=== PATIENT | male | born 1945 | race Caucasian/White ===

== ENCOUNTER 2016-07-27 08:38 | Inpatient (IN) | payer OTHER, MEDICARE ==
[~2016-07-27] VITALS: Ht 167.6 cm; Wt 99.1 kg
[~2016-07-27 08:38] MED LIST: ALLO300T2 PO; ASPI-973 PO; ATOR80TA PO; METO-272 PO; OXYC1TAB24 PO; PANT40TA2 PO; POLY17PO6 PO; TAMS0.4C98 PO
[2016-07-27 08:43] VITALS: BP 198/104; PULSE 72; RESP 12; O2SAT 94
--- NOTE | 2016-07-27 08:52 | ED.REPORT ---
HPI-Abd Pain M 40 and Over Date of Service July 27, 2016 ED Provider: Twila Jose MD The patient is a 71 year old male with history of kidney stones, recent abdominal hernia repair in late May, hypertension, hyperlipidemia, and coronary artery disease, who presents to the emergency department complaining of mid abdominal pain that began suddenly last night around midnight. Then at 0300 he started vomiting. He has also experienced nausea and abdominal distention. He is now not passing gas. He denies fever, chills, diarrhea, bloody emesis, dysuria or hematuria. Nursing Notes Stated Complaint: EXTREME STOMACH PAIN AND NAUSEA Chief Complaint: Male Abdominal Pain Nursing Notes Reviewed: Yes Allergies: Coded Allergies: clindamycin (Verified Allergy, Severe, Rash, 06/15/15) Scheduled Allopurinol (Allopurinol) 300 Mg Tablet 300 MG PO DAILY Aspirin (Aspirin) 325 Mg Tablet 325 MG PO DAILY Atorvastatin (Lipitor) 80 Mg Tablet 80 MG PO DAILY Enalapril Maleate (Enalapril Maleate) 10 Mg Tablet 10 MG PO DAILY Metoprolol Succinate ER (Metoprolol Succinate ER) 50 Mg Tab.er.24h 50 MG PO DAILY Multivitamin (Multivitamins) 1 Each Capsule 1 EACH PO DAILY [place]-3 Fatty Acids (Fish Oil) 300 Mg Capsule 2,400 MG PO DAILY Pantoprazole DR (Protonix) 40 Mg Tablet 40 MG PO BID General Time Seen by MD: 08:48 Chief Complaint Abdominal pain Hx Obtained From: Patient, Spouse Arrived By: Walk-in Sudden in Onset?: Yes Onset Occurred: 9 - 12 hours ago Symptom Duration: Since onset Progression since Onset: Constant Location: : Diffuse Quality: Painful Severity: Current: Moderate Severity: Maximum: Severe Recent Healthcare: No recent doctor visit, No recent hospitalization Similar Sx Previous: No Past Medical History Past Medical History Notes: Records from recent stay for incisional hernia repair were reviewed. Past Medical History Hernia Gout Kidney stones Reports: Coronary artery disease, Hyperlipidemia, Hypertension Past Surgical History Reports: CABG Family History Noncontributory Smoking History Former Smoker Social History Alcohol Use: "Social" Drug Use: Denies drug use Other Social History: Local resident Ambulatory Status Independent Review of Systems Review of Systems Note: +abdominal distention, not passing gas. Constitutional: Denies: Chills, Fever GI: Reports: Abdominal pain, Nausea, Vomiting, Denies: Bloody/tarry stool, Diarrhea, Hematemesis, Hematochezia, Melena Male: Denies Dysuria, Denies Hematuria Complete sys rev & neg: except as marked. Physical Exam Initial Vital Signs Vital Signs (First) Date Time Temp Pulse Resp B/P Pulse Ox O2 Delivery O2 Flow Rate FiO2 07/27/16 08:43 36.3 72 12 198/104 94 Initial VS: Reviewed Head / Eyes: Atraumatic, Normocephalic, PERRL ENT: Mucous membranes moist, Conjunctiva normal, No scleral icterus Neck: Supple, Non-tender, Full range of motion Extremities: Vascular intact, Neuro intact, No swelling, No tenderness Neurologic: Alert, Oriented, Nonfocal Psychiatric: Mood/affect normal, Behavior normal, Normal thought content General/Constitutional: Awake, Alert Distress / Hydration: Positive: Distress moderate Appearance / Presentation: Positive: Pale, Uncomfortable Respiratory / Chest: Atraumatic, Breath sounds NL, Breath sounds = bilat, No respiratory distress, No rales, No rhonchi, No wheezing Cardiovascular: Heart rate NL, Regular rhythm, Heart sounds NL, No gallop, No murmurs, No rubs, Peripheral circulation NL Abdomen: Soft, No rebound There is a 5 cm scar just superior to the umbilicus from a recent umbilical surgery. The scar is well healed. There is no obvious hernia. No masses below the incision. He is tender throughout his abdomen and has guarding across his upper abdomen. No bowel sounds. No rebound. No peritoneal signs. Back: No midline vertebral tend Skin: No rash Color / Condition: Positive: Diaphoresis present Interpretation & Diagnostics Interpretation & Diagnostics: Creatinine is chronically elevated and stable today. Lab Results Interpretation Result Diagram: 07/27/16 0857 07/27/16 0857 Test 07/27/16 08:57 White Blood Count 9.3th/mm3 (3.8-10.1) Red Blood Count 5.20mil/mm3 (4.40-5.80) Hemoglobin 15.5g/dL (13.8-17.2) Hematocrit 44.2% (41.0-50.0) Mean Corpuscular Volume 85.0fL (81-100) Mean Corpuscular Hemoglobin 29.8pg (27.0-35.0) Mean Corpuscular Hemoglobin Concent 35.1% (32.0-37.0) Red Cell Distribution Width 13.6% (12.3-15.4) Platelet Count 169bil/L (150-400) Neutrophils (%) (Auto) 87.9% (40-74) Lymphocytes (%) (Auto) 5.6% (14-46) Monocytes (%) (Auto) 4.1% (4-12) Eosinophils (%) (Auto) 1.8% (0-5) Basophils (%) (Auto) 0.3% (0-3) Sodium Level 141mEq/L (134-144) Potassium Level 5.1mEq/L (3.5-5.2) Chloride Level 102mEq/L (97-108) Carbon Dioxide Level 22mmol/L (18-29) Blood Urea Nitrogen 28mg/dL (8-27) Creatinine 1.44mg/dL (0.76-1.27) Estimat Glomerular Filtration Rate 52mL/min (>59) Glucose Level 209mg/dL (60-99) Calcium Level 9.9mg/dL (8.5-10.1) Magnesium Level 1.6mg/dL (1.6-2.6) Total Bilirubin 1.1mg/dL (0.0-1.2) Aspartate Amino Transf (AST/SGOT) 36U/L (0-50) Alanine Aminotransferase (ALT/SGPT) 32U/L (0-44) Alkaline Phosphatase 107U/L (25-160) Total Protein 7.0g/dL (6.4-8.4) Albumin 4.2g/dL (3.4-5.0) Lipase 25U/L (13-60) ECG Interpretation ECG Interpretation: Sinus rhythm with a rate of 66 LVH Unchanged from prior EKG taken on 06/15/2015 Time: 09:20 Interpreted by: ED physician X-Ray Abdominal Interpretation IMPRESSION: 1. Multiple small bowel air-fluid levels without abnormal gaseous dilatation are nonspecific but may reflect an early or incomplete obstruction. The differential also includes an ileus or gastroenteritis. Dictated by: Kike Corral M.D. on 07/27/2016 at 9:49 Interpretation / Wet Read by: Interpret - Radiologist Re-Eval/Medical Decision Med Decision/Clinical Course 71-year-old man with acute onset of abdominal pain consistent with small bowel obstruction. Brief discussion with his surgeon as he did have an abdominal wall hernia repair about 6 weeks ago. The surgeon recommended conservative management admitted to our hospital and will reevaluate further if conservative management is not helpful Will treat conservatively and will escalate should symptoms dictate. Source of Hx: Old records Time of Eval: 10:24 Re-Evaluation/Progress Note: Rechecked the patient. Discussed results, diagnosis, and plan for admission. Time of Eval: 11:23 Re-Evaluation/Progress Note: Discussed plan for admission here. Consultation #1: Call Returned at: 10:22 Note: Spoke with the medical device assembler of Dr. Barrera. Explained the issue and will wait for him to call back. He is currently scrubbed in the OR. Consultation #2: Call Returned at: 11:12 Note: Dr. Barrera would like the patient to be treated here as necessary. Consultation #3: Referral / Consult Name: Nic Randle MD Consulted With: Hospitalist Requested Call at: 11:24 Call Returned at: 12:10 Railroader: Will see patient, Agrees with eval, Agrees with plan, Accepts admit Counseled Regarding: Diagnosis, Lab results, Need for admission Discharge & Departure Primary Impression: Bowel obstruction Intestinal obstruction type: unspecified Qualified Code: K56.60 - Unspecified intestinal obstruction Additional Impression: Chronic renal insufficiency Chronic kidney disease stage: unspecified stage Qualified Code: N18.9 - Chronic kidney disease, unspecified Disposition: ADMITTED TO HOSPITAL Vital Signs - All Vital Signs Date Time Temp Pulse Resp B/P Pulse Ox O2 Delivery O2 Flow Rate FiO2 07/27/16 08:43 36.3 72 12 198/104 94 )( All Prior VS Reviewed: Yes Condition: Stable Referrals: Erasmo Zuniga MD (PCP) Hyacinth Attestation Portions of this note were transcribed by Jasmine Barksdale. I, Dr. Jose personally performed the history, physical exam and medical decision-making; I reviewed and confirmed the accuracy of the information in the transcribed note. Signed by: Hyacinth Pritchard, 07/27/2016 at 1230. copies to: Erasmo Zuniga MD, Shawna L MD July 27, 2016 08:51 Jasmine Barksdale July 27, 2016 08:53
[2016-07-27] MEDS ORDERED: 0.9% Sodium Chloride 1,000 ML IV ONE (09:01)
[2016-07-27] MEDS ORDERED: HYDROmorphone 1 mg/mL Inj IVPUSH PRN (09:05)
[2016-07-27] MEDS ORDERED: Ondansetron 2 mg/mL 2 mL Inj IVPUSH ONE ×2 (09:05)
[2016-07-27 09:12] LABS: BASOPHILS % (AUTO) 0.3 % (0-3); EOSINOPHILS % (AUTO) 1.8 % (0-5); MONOCYTES % (AUTO) 4.1 % (4-12); Mean Corpuscular Hemoglobin 29.8 pg (27.0-35.0); NEUTROPHILS % (AUTO) 87.9 % (40-74); Platelet Count 169 bil/L (150-400)
[2016-07-27] MEDS ORDERED: ASPI325T32 PO (09:28)
[2016-07-27 09:32] LABS: Magnesium 1.6 mg/dL (1.6-2.6)
--- NOTE | 2016-07-27 09:55 | DRSVH ---
PROCEDURE: X-RAY ACUTE ABDOMINAL SERIES ([id number]) INDICATIONS: acute belly pain TECHNIQUE: One view chest and two views of the abdomen were acquired. COMPARISON: None. FINDINGS: Surgical changes and devices: Multiple surgical clips and median sternotomy wires are demonstrated in the mediastinum. Chest: Lungs are clear. Heart size is normal. No pleural effusions. No pneumoperitoneum. Abdomen: Bowel gas pattern demonstrates multiple small scattered small bowel air-fluid levels in the left abdomen without abnormal gaseous small bowel dilatation. There is a paucity of gas in the colo n. No suspicious calcifications. Bones: No suspicious bony lesions. IMPRESSION: 1. Multiple small bowel air-fluid levels without abnormal gaseous dilatation are nonspecific but may reflect an early or incomplete obstruction. The differential also includes an ileus or gastroenteri tis. Dictated by: Kike Corral M.D. on 07/27/2016 at 9:49 Approved by: Kike Corral M.D. on 07/27/2016 at 9:53
[2016-07-27] MEDS: HYDROmorphone 0.5 mg/0.5 mL iSecure Syringe IVPUSH PRN ×3 (09:56→16:07)
[2016-07-27] MEDS ORDERED: ENAL10TA PO (12:21)
[2016-07-27] MEDS ORDERED: OMEG300C3 PO (12:22)
[2016-07-27] MEDS ORDERED: MULT1CAP33 PO (12:24)
[2016-07-27] MEDS ORDERED: Alum-Mag Hydrox-Simeth 30 mL Suspension PO PRN (12:55)
[2016-07-27] MEDS ORDERED: Polyethylene Glycol (PEG) 17 Gm Powder PO PRN (12:55)
[2016-07-27 14:06] VITALS: BP 164/75
[2016-07-27 14:35] VITALS: BP 164/99; PULSE 79; RESP 22; O2SAT 94
[2016-07-27 15:25] VITALS: PULSE 72
[2016-07-27 17:12] LABS: COLOR,URINE DARK YELLOW (YELLOW)
[2016-07-27 17:13] LABS: APPEARANCE,URINE CLEAR (CLEAR,HAZY); OCCULT BLOOD,URINE SMALL (NEGATIVE); PH,URINE 5.5 (5.0-8.0); UROBILINOGEN,URINE NORMAL (NORMAL)
[2016-07-27] MEDS: 0.9% Sodium Chloride 1,000 ML IV SCH ×2 (18:07→22:51)
--- NOTE | 2016-07-27 18:37 | PCM.HPMED ---
Subjective Date of Service July 27, 2016 Primary Provider: Admitting Physician: Nic Randle MD Primary Care Physician: Erasmo Zuniga MD Attending Physician: Nic Randle MD Admit Status: From the Emergency Department, Admit to Red Team Chief Complaint: Abdominal pain/12 hr Vomiting/12 HR History of Present Illness: 71-year-old gentleman with past medical history of CAD status post CABG, history of kidney stones, hypertension, hyperlipidemia, recent periumbilical incisional hernia repair came to the emergency room due to sudden onset abdominal pain of 12 hours. Patient states he developed sudden onset generalized abdominal pain. Pain is colicky, intermittent, 8/10. He also developed multiple episodes of vomiting overnight. Last bowel movement yesterday afternoon. He also complains of some abdominal distention. Denies fever. He had elective periumbilical incisional hernia repair with a mesh in May. He also has history of gastric surgery many years ago. ED course: Initial vital signs unremarkable Except high blood pressure. Distended mildly tender abdomen. Initial labs unremarkable. X-ray. Multiple air-fluid levels consistent with small bowel obstruction. surgeon at [facility] who did hernia repair was contacted by ED, recommended admission here and management of SBO Review of Systems: Comprehensive review of systems performed, pertinent positives and negatives included in history of present illness Allergies Coded Allergies: clindamycin (Verified Allergy, Severe, Rash, 06/15/15) Home Medications Allopurinol (Allopurinol) 300 Mg Tablet 300 MG PO DAILY Aspirin (Aspirin) 325 Mg Tablet 325 MG PO DAILY Atorvastatin (Lipitor) 80 Mg Tablet 80 MG PO DAILY Enalapril Maleate (Enalapril Maleate) 10 Mg Tablet 10 MG PO DAILY Metoprolol Succinate ER (Metoprolol Succinate ER) 50 Mg Tab.er.24h 50 MG PO DAILY Multivitamin (Multivitamins) 1 Each Capsule 1 EACH PO DAILY [place]-3 Fatty Acids (Fish Oil) 300 Mg Capsule 2,400 MG PO DAILY Pantoprazole DR (Protonix) 40 Mg Tablet 40 MG PO BID PMH CAD at age 50s, status post CABG Hernia Gout Kidney stones Hyperlipidemia, Hypertension Surgical History Recent hernia repair in May 2016 Gastric surgery, he describes as repositioning of abnormally positioned stomach CABG at age 51 Family History Mother had heart attack in her 50s Social History Hx Alcohol Use: Yes (3-4 x wk) Alcoholic Drinks Per Day: 2 drinks per day Hx Substance Use: No Smoking Status: Former Smoker Exam Vital Signs Vital Sign - Last Date Time Temp Pulse Resp B/P Pulse Ox O2 Delivery O2 Flow Rate FiO2 07/27/16 15:25 72 07/27/16 14:35 36.2 22 164/99 94 Room Air Exam Gen. patient is lying comfortably in hospital bed HEENT: Head is normocephalic atraumatic, Pupils equal and reactive, extraocular movements intact, Lungs clear to auscultation bilaterally Heart regular rate and rhythm without murmurs gallops or rubs Abdomen distended, slightly tender on lower abdomen. Hypoactive bowel sounds. Extremities pulses are present dorsalis pedis posterior tibialis and radial. tSkin is warm and dry there are no rashes, Psych alert and oriented to person place and time Neuro cranial nerves II through XII are grossly intact Lymph: There is no lymphadenopathy appreciated in the cervical supra infraclavicular regions : no roberts Lab and Diagnostics Result Diagram: 07/27/16 0857 07/27/16 0857 X-Rays, CTs and MRIs PROCEDURE: X-RAY ACUTE ABDOMINAL SERIES ([id number]) INDICATIONS: acute belly pain TECHNIQUE: One view chest and two views of the abdomen were acquired. COMPARISON: None. FINDINGS: Surgical changes and devices: Multiple surgical clips and median sternotomy wires are demonstrated in the mediastinum. Chest: Lungs are clear. Heart size is normal. No pleural effusions. No pneumoperitoneum. Abdomen: Bowel gas pattern demonstrates multiple small scattered small bowel air-fluid levels in the left abdomen without abnormal gaseous small bowel dilatation. There is a paucity of gas in the colon. No suspicious calcifications. Bones: No suspicious bony lesions. IMPRESSION: 1. Multiple small bowel air-fluid levels without abnormal gaseous dilatation are nonspecific but may reflect an early or incomplete obstruction. The differential also includes an ileus or gastroenteritis. Dictated by: Kike Corral M.D. on 07/27/2016 at 9:49 Assessment & Plan 71-year-old gentleman with past medical history of CAD status post CABG, history of kidney stones, hypertension, hyperlipidemia, recent periumbilical incisional hernia repair came to the emergency room due to sudden onset abdominal pain of 12 hours. #Small bowel obstruction due to adhesion,poa,acute -Nothing by mouth -Patient not having much distention. Vomiting improving. Hold off NG tube -Serial abdominal exam -will consider CT if no improvement in the next 12 hours -X-ray consistent with small bowel obstruction. -NS at 100ml/h -pain meds morphine -ppi # CAD status post CABG -Telemetry - Home meds remain on hold due to npo #Hypertension -Hydralazine IV when necessary # Recent hernia repair Patient admitted under inpatient status with expected length of stay > 2 midnights for severity of present symptoms, complexities of treatment plan and risk for adverse events full code, verified with patient and copies to: Erasmo Zuniga MD, Melaku MD July 27, 2016 18:37
[2016-07-27] MEDS: Ondansetron 2 mg/mL 2 mL Inj IVPUSH PRN (19:25)
[2016-07-27 20:15] VITALS: BP 168/93; PULSE 73; RESP 17; O2SAT 94
[2016-07-27] MEDS: Pantoprazole 4 mg/mL 10 mL Inj IVPUSH SCH (21:02)
[2016-07-27 23:30] VITALS: PULSE 68
[2016-07-28] VITALS (10 sets, daily range): BP systolic 131–202; BP diastolic 77–96; PULSE 66–83; RESP 13–20; O2SAT 93–97
[2016-07-28] MEDS: 0.9% Sodium Chloride 1,000 ML IV SCH ×3 (04:12→23:58)
[2016-07-28 05:46] LABS: BASOPHILS % (AUTO) 0.5 % (0-3); EOSINOPHILS % (AUTO) 6.1 % (0-5); MONOCYTES % (AUTO) 9.4 % (4-12); Mean Corpuscular Hemoglobin 29.7 pg (27.0-35.0); NEUTROPHILS % (AUTO) 73.4 % (40-74); Platelet Count 180 bil/L (150-400)
[2016-07-28 06:16] LABS: Magnesium 1.7 mg/dL (1.6-2.6)
[2016-07-28] MEDS: Pantoprazole 4 mg/mL 10 mL Inj IVPUSH SCH ×2 (08:19→16:45)
[2016-07-28] MEDS: MeTOProlol XL 50 mg ER24 Tablet PO SCH (10:06)
[2016-07-28] MEDS: Ondansetron 2 mg/mL 2 mL Inj IVPUSH PRN (11:44)
[2016-07-28] MEDS ORDERED: Labetalol 5 mg/mL 4 mL Inj IVPUSH ONE (13:50)
--- NOTE | 2016-07-28 15:11 | PCM.PNMED ---
Subjective Date of Service July 28, 2016 Subjective Passing gas. No bowel movement. Abdominal distention improved. No vomiting. Blood pressures elevated. Home antihypertensives resumed except KINZA inhibitor. Started on clear liquid diets. Tolerating so far Exam Vital Signs Vital Sign - Last Date Time Temp Pulse Resp B/P Pulse Ox O2 Delivery O2 Flow Rate FiO2 07/28/16 13:44 36.8 66 16 180/90 95 Room Air Intake and Output 07/27/16 07/27/16 07/28/16 Cumulative From/Thru 15:00 23:00 07:00 07/27/16 08:43 - 07/28/16 06:15 Intake Total 1000 ml 0 ml 1178 ml 2178 ml Output Total 300 ml 1050 ml 1350 ml Balance 1000 ml -300 ml 128 ml 828 ml Intake Oral 0 ml 0 ml 0 ml IV Total 1000 ml 1178 ml 2178 ml Output Urine Total 200 ml 1050 ml 1250 ml Emesis 100 ml 100 ml Exam Gen. patient is lying comfortably in hospital bed HEENT: Head is normocephalic atraumatic, Pupils equal and reactive, extraocular movements intact, Lungs clear to auscultation bilaterally Heart regular rate and rhythm without murmurs gallops or rubs Abdomen distended, slightly tender on lower abdomen. Hypoactive bowel sounds. Extremities pulses are present dorsalis pedis posterior tibialis and radial. tSkin is warm and dry there are no rashes, Psych alert and oriented to person place and time Neuro cranial nerves II through XII are grossly intact Lymph: There is no lymphadenopathy appreciated in the cervical supra infraclavicular regions : no roberts IVs and Medications Medications Reviewed: Medications were reviewed in detail Lab and Diagnostics Result Diagram: 07/28/1650907/28/16 0510 X-Rays, CTs and MRIs PROCEDURE: X-RAY ACUTE ABDOMINAL SERIES ([id number]) INDICATIONS: acute belly pain TECHNIQUE: One view chest and two views of the abdomen were acquired. COMPARISON: None. FINDINGS: Surgical changes and devices: Multiple surgical clips and median sternotomy wires are demonstrated in the mediastinum. Chest: Lungs are clear. Heart size is normal. No pleural effusions. No pneumoperitoneum. Abdomen: Bowel gas pattern demonstrates multiple small scattered small bowel air-fluid levels in the left abdomen without abnormal gaseous small bowel dilatation. There is a paucity of gas in the colon. No suspicious calcifications. Bones: No suspicious bony lesions. IMPRESSION: 1. Multiple small bowel air-fluid levels without abnormal gaseous dilatation are nonspecific but may reflect an early or incomplete obstruction. The differential also includes an ileus or gastroenteritis. Dictated by: Kike Corral M.D. on 07/27/2016 at 9:49 Assessment & Plan 71-year-old gentleman with past medical history of CAD status post CABG, history of kidney stones, hypertension, hyperlipidemia, recent periumbilical incisional hernia repair came to the emergency room due to sudden onset abdominal pain of 12 hours. #Small bowel obstruction due to adhesion,poa,acute -Start clear liquid diet and advance as tolerated gradually -Patient not having much distention. Vomiting improving. Hold off NG tube -Serial abdominal exam -will consider CT if no improvement in the next 12 hours -X-ray consistent with small bowel obstruction. -NS at 100ml/h -pain meds morphine -ppi # MAGGIE -Due to poor oral intake and vomiting -hold enalapril -Continue fluids # CAD status post CABG -Telemetry - Continue Home meds #Hypertension -Hydralazine IV when necessary -resume home meds except KINZA inhibitor. Gave a dose of amlodipine and labetalol for uncontrolled hypertension # Recent hernia repair Patient admitted under inpatient status with expected length of stay > 2 midnights for severity of present symptoms, complexities of treatment plan and risk for adverse events full code, verified with patient and Disposition: Possible discharge tomorrow if continues to improve and diet advanced VTE Mechanical Devices: Intermittant Pneumatic CD Nic Randle MD July 28, 2016 15:11
[2016-07-29 05:00] VITALS: BP 148/82; PULSE 79; RESP 17; O2SAT 96
[2016-07-29 07:25] LABS: BASOPHILS % (AUTO) 0.5 % (0-3); EOSINOPHILS % (AUTO) 9.7 % (0-5); MONOCYTES % (AUTO) 15.2 % (4-12); Mean Corpuscular Hemoglobin 29.9 pg (27.0-35.0); Mean Corpuscular Volume 90.1 fL (81-100); NEUTROPHILS % (AUTO) 52.6 % (40-74); Platelet Count 142 bil/L (150-400)
[2016-07-29 08:01] LABS: Magnesium 1.7 mg/dL (1.6-2.6)
[2016-07-29] MEDS: Pantoprazole 4 mg/mL 10 mL Inj IVPUSH SCH (08:13)
[2016-07-29] MEDS: MeTOProlol XL 50 mg ER24 Tablet PO SCH (08:14)
[2016-07-29 08:18] VITALS: BP 161/85; PULSE 71; O2SAT 96
[2016-07-29] MEDS ORDERED: Omega-3-Acid Ethyl Esters 1 Gm Capsule PO SCH (08:30)
--- NOTE | 2016-07-29 10:20 | PCM.DIMED ---
Discharge Instructions Date of Service July 29, 2016 Dates of Hospitalization July 27, 2016 at 13:42 Discharge Diagnosis Discharge Diagnosis #Small bowel obstruction due to adhesion,poa,acute,resolved # MAGGIE on CKD # CAD status post CABG #Hypertension # Recent hernia repair Test Results X-ray consistent with small bowel obstruction. Diet Low fat, Low Sodium, Heart Healthy Activity Limited until seen by PCP Call your provider Fever or Chills, Shortness of breath, Bleeding, Chest pain, Vomitting, Excessive diarrhea, Weakness (unilateral) Patient Instructions you were hospitalized to due to small bowel obstruction secondary to adhesions.you had bowel movement and distention improved. Started on diet and tolerated. Please follow-up with PCP in 1 week and discuss hospitalization. Follow-up plan Please follow up with PCP in 1 week. Follow-up Provider: Erasmo Zuniga MD Follow-up with PCP in: 1 week Nic Randle MD July 29, 2016 10:20
--- NOTE | 2016-07-29 11:18 | DRSVH ---
PROCEDURE: X-RAY ABDOMEN, ONE VIEW ([id number]) INDICATIONS: SMALL BOWEL OBSTRUCTION TECHNIQUE: One view of the abdomen acquired. COMPARISON: [facility], CR, XR ABD ACUTE SERIES 3VW, 07/27/2016, 9:35. FINDINGS: Surgical changes and devices: None. Bowel: Abnormal bowel gas pattern redemonstrated. Asymmetric dilatation of small bowel within the m id abdomen and left upper quadrant with paucity of gas within the colon. No pneumatosis or bowel wal l thickening. Soft tissues: No suspicious abdominal calcifications. Visualized solid organ contours appear normal in size. Bones: No suspicious bony lesions. IMPRESSION: Persistent partial small bowel obstructive pattern. Dictated by: William CARBAJAL Interpreted: Rickie Grullon MD on 07/29/2016 at 11:16 Transcribed by: ELIAS on 07/29/2016 at 11:17 Approved by: Rickie Grullon M.D. on 07/29/2016 at 13:39
--- NOTE | 2016-07-29 11:55 | PCM.DC.MED ---
Discharge Summary Date of Service July 29, 2016 Dates of Hospitalization Date of Hospital Admission July 27, 2016 at 13:42 Date of Discharge: July 29, 2016 Providers: Admitting Physician: Nic Randle MD Primary Care Physician: Erasmo Zuniga MD Attending Physician: Nic Randle MD Diagnosis at Time of Discharge Diagnosis at Time of Discharge #Small bowel obstruction due to adhesion,poa,acute,resolved # MAGGIE on CKD # CAD status post CABG #Hypertension # Recent hernia repair Consultations none Procedures XRay, CTs & MRIs PROCEDURE: X-RAY ACUTE ABDOMINAL SERIES ([id number]) INDICATIONS: acute belly pain TECHNIQUE: One view chest and two views of the abdomen were acquired. COMPARISON: None. FINDINGS: Surgical changes and devices: Multiple surgical clips and median sternotomy wires are demonstrated in the mediastinum. Chest: Lungs are clear. Heart size is normal. No pleural effusions. No pneumoperitoneum. Abdomen: Bowel gas pattern demonstrates multiple small scattered small bowel air-fluid levels in the left abdomen without abnormal gaseous small bowel dilatation. There is a paucity of gas in the colon. No suspicious calcifications. Bones: No suspicious bony lesions. IMPRESSION: 1. Multiple small bowel air-fluid levels without abnormal gaseous dilatation are nonspecific but may reflect an early or incomplete obstruction. The differential also includes an ileus or gastroenteritis. Dictated by: Kike Corral M.D. on 07/27/2016 at 9:49 Brief History 71-year-old gentleman with past medical history of CAD status post CABG, history of kidney stones, hypertension, hyperlipidemia, recent periumbilical incisional hernia repair came to the emergency room due to sudden onset abdominal pain of 12 hours. Patient states he developed sudden onset generalized abdominal pain. Pain is colicky, intermittent, 8/10. He also developed multiple episodes of vomiting overnight. Last bowel movement yesterday afternoon. He also complains of some abdominal distention. Denies fever. He had elective periumbilical incisional hernia repair with a mesh in May. He also has history of gastric surgery many years ago. ED course: Initial vital signs unremarkable Except high blood pressure. Distended mildly tender abdomen. Initial labs unremarkable. X-ray. Multiple air-fluid levels consistent with small bowel obstruction. surgeon at [facility] who did hernia repair was contacted by ED, recommended admission here and management of [facility] Hospital Course 71-year-old gentleman with past medical history of CAD status post CABG, history of kidney stones, hypertension, hyperlipidemia, recent periumbilical incisional hernia repair came to the emergency room due to sudden onset abdominal pain of 12 hours. #Small bowel obstruction due to adhesion,poa,acute -Started clear liquid diet and advanced as tolerated gradually. Patient currently tolerating regular diet. Patient had 2 large bowel movements overnight. Distention improved. -Did not require NG tube -Serial abdominal exam -X-ray consistent with small bowel obstruction. -Treated with NS at 100ml/h -Treated with pain meds morphine -ppi # MAGGIE on ckd -Patient states he has some CKD. Last known creatinine prior to admission at this hospital is 1.6 -Due to poor oral intake and vomiting -Initially hold enalapril . Resume upon discharge since creatinine is almost at baseline -Treated with fluids # CAD status post CABG -Telemetry - Continue Home meds #Hypertension -Hydralazine IV when necessary -resume home meds , Gave a dose of amlodipine and labetalol for uncontrolled hypertension # Recent hernia repair Discharge interval Condition on discharge stable Exam Vital Signs (Last) Date Time Temp Pulse Resp B/P Pulse Ox O2 Delivery O2 Flow Rate FiO2 07/29/16 08:18 71 161/85 96 Room Air 07/29/16 05:00 36.7 17 Exam Gen. patient is lying comfortably in hospital bed HEENT: Head is normocephalic atraumatic, Pupils equal and reactive, extraocular movements intact, Lungs clear to auscultation bilaterally Heart regular rate and rhythm without murmurs gallops or rubs Abdomen slightly distended, slightly tender on lower abdomen. Much improved distention and tenderness. normoactive bowel sounds. Extremities pulses are present dorsalis pedis posterior tibialis and radial. tSkin is warm and dry there are no rashes, Psych alert and oriented to person place and time Neuro cranial nerves II through XII are grossly intact Lymph: There is no lymphadenopathy appreciated in the cervical supra infraclavicular regions : no roberts Test 07/27/16 08:57 07/27/16 16:40 07/29/16 06:55 Lipase 25U/L (13-60) Urine Color Dark yellow (YELLOW) Urine Appearance Clear (CLEAR,HAZY) Urine pH 5.5 (5.0-8.0) Urine Specific [place] 1.025 (1.003-1.035) Urine Protein 30mg/dL (NEG,TRACE) Urine Glucose (UA) Negativemg/dL (NEGATIVE) Urine Ketones Negativemg/dL (NEGATIVE) Urine Occult Blood Small (NEGATIVE) Urine Nitrite Negative (NEGATIVE) Urine Bilirubin Negative (NEGATIVE) Urine Urobilinogen Normalmg/dL (NORMAL) Urine Leukocyte Esterase Negative (NEGATIVE) Urine RBC 3-10/hpf (0-2) Urine WBC 0-5/hpf (0-5) Urine Epithelial Cells Few/hpf (NONE-MOD) Urine Crystals None seen (NONE SEEN) Urine Bacteria None/hpf (NONE-FEW) Urine Hyaline Casts None/lpf (NONE) Urine Granular Casts None seen (NONE SEEN) Urine Waxy Casts None seen (NONE SEEN) Urine Red Blood Cell Casts None seen (NONE SEEN) Urine White Blood Cell Casts None seen (NONE SEEN) Urine Mucus None seen (None Seen) Urine Trichomonas None seen (NONE SEEN) Urine Yeast None (NONE SEEN) Urine Culture Reflexed Not indicated White Blood Count 3.8th/mm3 (3.8-10.1) Red Blood Count 4.15mil/mm3 (4.40-5.80) Hemoglobin 12.4g/dL (13.8-17.2) Hematocrit 37.4% (41.0-50.0) Mean Corpuscular Volume 90.1fL (81-100) Mean Corpuscular Hemoglobin 29.9pg (27.0-35.0) Mean Corpuscular Hemoglobin Concent 33.2% (32.0-37.0) Red Cell Distribution Width 13.9% (12.3-15.4) Platelet Count 142bil/L (150-400) Neutrophils (%) (Auto) 52.6% (40-74) Lymphocytes (%) (Auto) 21.7% (14-46) Monocytes (%) (Auto) 15.2% (4-12) Eosinophils (%) (Auto) 9.7% (0-5) Basophils (%) (Auto) 0.5% (0-3) Sodium Level 144mEq/L (134-144) Potassium Level 4.0mEq/L (3.5-5.2) Chloride Level 106mEq/L (97-108) Carbon Dioxide Level 26mmol/L (18-29) Blood Urea Nitrogen 22mg/dL (8-27) Creatinine 1.39mg/dL (0.76-1.27) Estimat Glomerular Filtration Rate 54mL/min (>59) Glucose Level 104mg/dL (60-99) Calcium Level 8.4mg/dL (8.5-10.1) Magnesium Level 1.7mg/dL (1.6-2.6) Total Bilirubin 0.9mg/dL (0.0-1.2) Aspartate Amino Transf (AST/SGOT) 15U/L (0-50) Alanine Aminotransferase (ALT/SGPT) 17U/L (0-44) Alkaline Phosphatase 71U/L (25-160) Total Protein 4.9g/dL (6.4-8.4) Albumin 3.2g/dL (3.4-5.0) Discharge Medications Discharge Medications Allopurinol (Allopurinol) 300 Mg Tablet 300 MG PO DAILY (Reported) Aspirin (Aspirin) 325 Mg Tablet 325 MG PO DAILY (Reported) Atorvastatin (Lipitor) 80 Mg Tablet 80 MG PO DAILY (Reported) Enalapril Maleate (Enalapril Maleate) 10 Mg Tablet 10 MG PO DAILY (Reported) Metoprolol Succinate ER (Metoprolol Succinate ER) 50 Mg Tab.er.24h 50 MG PO DAILY (Reported) Multivitamin (Multivitamins) 1 Each Capsule 1 EACH PO DAILY (Reported) Stuart-3 Fatty Acids (Fish Oil) 300 Mg Capsule 2,400 MG PO DAILY (Reported) Pantoprazole DR (Protonix) 40 Mg Tablet 40 MG PO BID (Reported) Followup Plan Disposition: Home Follow-up plan Please follow up with PCP in 1 week. Discharge Diet: Low fat, Low Sodium, Heart Healthy Discharge Activity: Limited until seen by PCP Patient Instructions you were hospitalized to due to small bowel obstruction secondary to adhesions.you had bowel movement and distention improved. Started on diet and tolerated. Please follow-up with PCP in 1 week and discuss hospitalization. Follow-up Provider: Erasmo Zuniga MD Follow-up with PCP in: 1 week Time spent 35 minutes explaining to patient regarding diagnosis and coordinating discharge copies to: Erasmo Zuniga MD, Melaku MD July 29, 2016 11:55
== END 2016-07-29 11:57 | disposition home or self-care (01) | DRG 389 ==
LOC: SED 08:38 → OSC 13:42
PROVIDERS: ADMIT Internal Medicine; ATTEND Internal Medicine
DX: K56.5 Intestinal adhesions [bands] with obstruction (postinfection) (principal); N17.9 Acute kidney failure, unspecified; Z79.82 Long term (current) use of aspirin; Z87.891 Personal history of nicotine dependence; Z95.1 Presence of aortocoronary bypass graft; I25.10 Atherosclerotic heart disease of native coronary artery without angina pectoris; N18.9 Chronic kidney disease, unspecified; I12.9 Hypertensive chronic kidney disease with stage 1 through stage 4 chronic kidney disease, or unspecified chronic kidney disease